=== PATIENT | female | born 1995 | race Hispanic/Latino ===

== ENCOUNTER 2022-02-24 23:21 | Emergency (ER) | payer MEDICAID ==
[~2022-02-24] VITALS: Ht 160 cm; Wt 79.4 kg
[2022-02-25 00:13] LABS: APPEARANCE,URINE CLEAR (CLEAR); BILIRUBIN,URINE NEGATIVE (NEGATIVE); COLOR,URINE YELLOW (YELLOW); GLUCOSE, URINE (UA) NEGATIVE (NEGATIVE); KETONES,URINE NEGATIVE (NEGATIVE); LEUKOCYTE ESTERASE ,URINE NEGATIVE (NEGATIVE); NITRATE,URINE NEGATIVE (NEGATIVE); OCCULT BLOOD,URINE MODERATE (NEGATIVE); PROTEIN,URINE NEGATIVE (NEGATIVE); UROBILINOGEN,URINE 0.2 mg/dL (0.2-1.0)
[2022-02-25 00:15] LABS: HCG,QUALITATIVE URINE NEGATIVE (NEGATIVE)
[2022-02-25 00:20] LABS: CREATININE 0.7 mg/dL (0.5-1.5); POTASSIUM 3.3 mmol/L (3.5-5.1)
[2022-02-25 00:21] LABS: BACTERIA,URINE Rare /HPF (None Seen); MUCUS,URINE Moderate LPF (None Seen); SQUAMOUS EPITHELIAL CELL,UR Moderate /HPF (0-2); WBC,URINE 0-1 /HPF (0-1)
[2022-02-25 00:22] LABS: INR 0.96 (0.85-1.15); PROTHROMBIN TIME 10.5 SEC (9.6-11.6)
[2022-02-25 00:23] LABS: PARTIAL THROMBOPLASTIN TIME 27.5 SEC (26.3-35.5)
[2022-02-25 00:25] LABS: ALBUMIN 3.4 g/dL (3.5-5.0); TOTAL PROTEIN, SERUM 6.8 g/dL (6.0-8.3)
[2022-02-25 00:36] LABS: BASOPHILS % (AUTO) 0.3 % (0.0-5.0); EOSINOPHILS % (AUTO) 1.3 % (0.0-8.0); HEMATOCRIT 37.7 % (36-48); LYMPHOCYTES % (AUTO) 13.8 % (21.0-51.0); MEAN CORPUSCULAR HEMOGLOBIN 29.9 pg (27.0-33.0); MEAN CORPUSCULAR HGB CONC 34.2 g/dL (32.0-36.0); MEAN CORPUSCULAR VOLUME 87.5 fL (79-99); MONOCYTES % (AUTO) 7.6 % (3.0-13.0); NEUTROPHILS % (AUTO) 76.7 % (40.0-77.0); PLATELET COUNT (AUTO) 298 K/uL (130-400); RED BLOOD CELL COUNT(AUTO) 4.31 MIL/uL (4.00-5.50); RED CELL DISTRIBUTION WIDTH 11.7 % (11.0-15.5); WHITE BLOOD COUNT (AUTO) 11.5 K/uL (4.8-10.8)
[2022-02-25] MEDS ORDERED: 0.9%NACL 1000ML 1,000 ML IV ONE (01:00)
[2022-02-25] MEDS ORDERED: CIPR-278 PO (01:43)
[2022-02-25 01:51] VITALS: BP 118/75
== END 2022-02-25 02:14 | disposition home or self-care (01) ==
LOC: EDH 23:21
DX: A09 Infectious gastroenteritis and colitis, unspecified (principal); K92.1 Melena; Z98.890 Other specified postprocedural states
CPT/HCPCS: 99283; 82270; 80053; 83690; 85025; 85610; 85730; 81001; 81025; 36415; J7030

== ENCOUNTER 2022-05-04 23:07 | Emergency (ER) | payer MEDICAID ==
[~2022-05-04] VITALS: Ht 160 cm; Wt 75.7 kg
[~2022-05-04 23:07] MED LIST: CIPR-278 PO
[2022-05-05] MEDS ORDERED: IPRATROPIUM/ALBUTEROL SULFATE 3 ML SOLUTION IH ONE
[2022-05-05] MEDS ORDERED: ACETAMINOPHEN 500 MG TABLET PO ONE
[2022-05-05] MEDS ORDERED: SOLU-MEDROL 125MG VIAL IVP ONE
[2022-05-05] MEDS ORDERED: PRED20TA3 PO (00:14)
[2022-05-05] MEDS ORDERED: OSEL75 PO (00:14)
[2022-05-05] MEDS ORDERED: IBUP-1493 PO (00:14)
[2022-05-05] MEDS ORDERED: ALBU8.5H8 IH (00:15)
[2022-05-05] MEDS ORDERED: IBUPROFEN 600 MG TABLET PO ONE (00:30)
[2022-05-05 00:32] VITALS: BP 108/64
== END 2022-05-05 00:34 | disposition home or self-care (01) ==
LOC: EDH 23:07
DX: J10.1 Influenza due to other identified influenza virus with other respiratory manifestations (principal); Z20.822 Contact with and (suspected) exposure to COVID-19; Z79.52 Long term (current) use of systemic steroids
CPT/HCPCS: 99283; 96374; 87635; 87804 ×2; C9803; J2930

== ENCOUNTER 2022-09-14 20:34 | Emergency (ER) | payer MEDICAID ==
[~2022-09-14] VITALS: Ht 157.5 cm; Wt 74.8 kg
[~2022-09-14 20:34] MED LIST changes: +ALBU8.5H8 IH; +IBUP-1493 PO; +OSEL75 PO; +PRED20TA3 PO
[2022-09-14 22:50] VITALS: BP 135/68
[2022-09-14] MEDS ORDERED: ONDANSETRON ODT 4MG TAB SL ONE (23:00)
[2022-09-14] MEDS ORDERED: KETOROLAC 30MG VIAL (30MG/ML) IM ONE (23:00)
== END 2022-09-14 22:59 | disposition home or self-care (01) ==
LOC: EDH 20:34
DX: B34.9 Viral infection, unspecified (principal); J35.01 Chronic tonsillitis; Z20.822 Contact with and (suspected) exposure to COVID-19; Z79.899 Other long term (current) drug therapy; Z98.890 Other specified postprocedural states
CPT/HCPCS: 99283; 87635; 87880; 87804 ×2; 96372; C9803; J1885

== ENCOUNTER 2022-09-17 14:44 | Emergency (ER) | payer MEDICAID ==
[~2022-09-17] VITALS: Ht 160 cm; Wt 81.6 kg
[2022-09-17 15:47] LABS: BASOPHILS % (AUTO) 0.6 % (0.0-5.0); EOSINOPHILS % (AUTO) 2.6 % (0.0-8.0); HEMATOCRIT 44.3 % (36-48); LYMPHOCYTES % (AUTO) 28.6 % (21.0-51.0); MEAN CORPUSCULAR HEMOGLOBIN 29.3 pg (27.0-33.0); MEAN CORPUSCULAR HGB CONC 33.6 g/dL (32.0-36.0); MONOCYTES % (AUTO) 5.2 % (3.0-13.0); NEUTROPHILS % (AUTO) 62.8 % (40.0-77.0); PLATELET COUNT (AUTO) 305 K/uL (130-400); RED BLOOD CELL COUNT(AUTO) 5.09 MIL/uL (4.00-5.50); RED CELL DISTRIBUTION WIDTH 11.9 % (11.0-15.5); WHITE BLOOD COUNT (AUTO) 8.5 K/uL (4.8-10.8)
[2022-09-17 15:58] LABS: CREATININE 0.5 mg/dL (0.5-1.5); POTASSIUM 3.7 mmol/L (3.5-5.1)
[2022-09-17 16:02] LABS: ALBUMIN 3.2 g/dL (3.5-5.0); TOTAL PROTEIN, SERUM 6.2 g/dL (6.0-8.3)
== END 2022-09-17 19:15 | disposition home or self-care (01) ==
LOC: EDH 14:44
DX: R42 Dizziness and giddiness (principal); Z20.822 Contact with and (suspected) exposure to COVID-19; Z79.1 Long term (current) use of non-steroidal anti-inflammatories (NSAID); Z79.52 Long term (current) use of systemic steroids
CPT/HCPCS: 99283; 87635; 80053; 85025; 87804 ×2; 36415; C9803

== ENCOUNTER 2022-10-03 21:15 | Emergency (ER) | payer MEDICAID ==
[~2022-10-03] VITALS: Ht 160 cm; Wt 74.4 kg
[2022-10-03 22:19] VITALS: BP 122/59
[2022-10-04] MEDS ORDERED: IBUP-2070 PO (00:36)
[2022-10-04] MEDS ORDERED: KETOROLAC 30MG VIAL (30MG/ML) IM ONE (01:00)
== END 2022-10-04 01:31 | disposition home or self-care (01) ==
LOC: EDH 21:15
DX: M77.8 Other enthesopathies, not elsewhere classified (principal)
CPT/HCPCS: 99283; 96372; J1885

== ENCOUNTER 2022-10-29 22:25 | Emergency (ER) | payer MEDICAID ==
[~2022-10-29] VITALS: Ht 160 cm; Wt 72.3 kg
[~2022-10-29 22:25] MED LIST changes: +IBUP-2070 PO
[2022-10-29] MEDS ORDERED: PANTOPRAZOLE 40 MG/VIAL IVP ONE (23:00)
[2022-10-29] MEDS ORDERED: KETOROLAC 30MG VIAL (30MG/ML) IVP ONE (23:00)
[2022-10-29] MEDS ORDERED: ACETAMINOPHEN 325 MG TAB PO ONE (23:00)
[2022-10-29] MEDS ORDERED: 0.9%NACL 1000ML 1,000 ML IV ONE (23:00)
[2022-10-29] MEDS ORDERED: DICYCLOMINE 20MG (10MG/ML) AMP IM ONE (23:00)
[2022-10-29] MEDS ORDERED: ONDANSETRON 4MG INJ IVP ONE (23:00)
[2022-10-29] MEDS ORDERED: IOHEXOL-350 75 ML VIAL IV ONE (23:07)
[2022-10-29 23:14] LABS: BASOPHILS % (AUTO) 0.6 % (0.0-5.0); EOSINOPHILS % (AUTO) 3.3 % (0.0-8.0); HEMATOCRIT 41.5 % (36-48); LYMPHOCYTES % (AUTO) 30.4 % (21.0-51.0); MEAN CORPUSCULAR HEMOGLOBIN 29.8 pg (27.0-33.0); MEAN CORPUSCULAR HGB CONC 32.5 g/dL (32.0-36.0); MEAN CORPUSCULAR VOLUME 91.6 fL (79-99); MONOCYTES % (AUTO) 5.9 % (3.0-13.0); NEUTROPHILS % (AUTO) 59.7 % (40.0-77.0); PLATELET COUNT (AUTO) 347 K/uL (130-400); RED BLOOD CELL COUNT(AUTO) 4.53 MIL/uL (4.00-5.50); RED CELL DISTRIBUTION WIDTH 12.3 % (11.0-15.5); WHITE BLOOD COUNT (AUTO) 8.6 K/uL (4.8-10.8)
[2022-10-29 23:16] LABS: APPEARANCE,URINE CLOUDY (CLEAR); BILIRUBIN,URINE NEGATIVE (NEGATIVE); COLOR,URINE YELLOW (YELLOW); GLUCOSE, URINE (UA) NEGATIVE (NEGATIVE); KETONES,URINE 10 mg/dL (NEGATIVE); LEUKOCYTE ESTERASE ,URINE 250 Leu/uL (NEGATIVE); NITRATE,URINE NEGATIVE (NEGATIVE); OCCULT BLOOD,URINE NEGATIVE (NEGATIVE); PH,URINE 6.5 (5.0-8.0); PROTEIN,URINE NEGATIVE (NEGATIVE); UROBILINOGEN,URINE 0.2 mg/dL (0.2-1.0)
[2022-10-29 23:18] LABS: HCG,QUALITATIVE URINE POSITIVE (NEGATIVE)
[2022-10-29 23:23] LABS: CREATININE 0.5 mg/dL (0.5-1.5); POTASSIUM 3.6 mmol/L (3.5-5.1)
[2022-10-29 23:28] LABS: ALBUMIN 3.7 g/dL (3.5-5.0); TOTAL PROTEIN, SERUM 7.3 g/dL (6.0-8.3)
[2022-10-29 23:40] LABS: BACTERIA,URINE RARE /HPF (None Seen); MUCUS,URINE RARE LPF (None Seen); SQUAMOUS EPITHELIAL CELL,UR MANY /HPF (0-2)
[2022-10-29] MEDS ORDERED: CEPH500C2 PO (23:44)
[2022-10-29] MEDS ORDERED: METO5 PO (23:44)
[2022-10-29] MEDS ORDERED: PNV#1CAP17 PO (23:44)
[2022-10-30 02:00] VITALS: BP 128/78
== END 2022-10-30 01:55 | disposition home or self-care (01) ==
LOC: EDH 22:25
DX: O23.41 Unspecified infection of urinary tract in pregnancy, first trimester (principal); N39.0 Urinary tract infection, site not specified; O26.891 Other specified pregnancy related conditions, first trimester; R10.30 Lower abdominal pain, unspecified; O21.9 Vomiting of pregnancy, unspecified; Z3A.01 Less than 8 weeks gestation of pregnancy; Z79.1 Long term (current) use of non-steroidal anti-inflammatories (NSAID); Z79.52 Long term (current) use of systemic steroids
CPT/HCPCS: 99285; 96374; 76801; 96361; 80053; 84702; 83690; 85025; 87088; 81001; 81025; 36415; J7030; J2405; Q9967

== ENCOUNTER 2022-12-17 23:15 | Emergency (ER) | payer MEDICAID ==
[~2022-12-17] VITALS: Ht 160 cm; Wt 72.1 kg
[~2022-12-17 23:15] MED LIST changes: +CEPH500C2 PO; +METO5 PO; +PNV#1CAP17 PO
[2022-12-18 00:17] LABS: APPEARANCE,URINE CLOUDY (CLEAR); BILIRUBIN,URINE NEGATIVE (NEGATIVE); COLOR,URINE YELLOW (YELLOW); GLUCOSE, URINE (UA) NEGATIVE (NEGATIVE); KETONES,URINE 5 mg/dL (NEGATIVE); LEUKOCYTE ESTERASE ,URINE 250 Leu/uL (NEGATIVE); NITRATE,URINE NEGATIVE (NEGATIVE); OCCULT BLOOD,URINE SMALL (NEGATIVE); PROTEIN,URINE NEGATIVE (NEGATIVE); UROBILINOGEN,URINE 0.2 mg/dL (0.2-1.0)
[2022-12-18 00:22] LABS: BACTERIA,URINE RARE /HPF (None Seen); MUCUS,URINE RARE LPF (None Seen); SQUAMOUS EPITHELIAL CELL,UR MOD /HPF (0-2)
[2022-12-18 00:30] LABS: BASOPHILS % (AUTO) 0.4 % (0.0-5.0); CREATININE 0.5 mg/dL (0.5-1.5); EOSINOPHILS % (AUTO) 1.8 % (0.0-8.0); HEMATOCRIT 36.4 % (36-48); MEAN CORPUSCULAR HEMOGLOBIN 30.1 pg (27.0-33.0); MEAN CORPUSCULAR HGB CONC 34.1 g/dL (32.0-36.0); MEAN CORPUSCULAR VOLUME 88.3 fL (79-99); NEUTROPHILS % (AUTO) 62.6 % (40.0-77.0); PLATELET COUNT (AUTO) 304 K/uL (130-400); POTASSIUM 3.9 mmol/L (3.5-5.1); RED BLOOD CELL COUNT(AUTO) 4.12 MIL/uL (4.00-5.50); RED CELL DISTRIBUTION WIDTH 11.9 % (11.0-15.5); WHITE BLOOD COUNT (AUTO) 9.2 K/uL (4.8-10.8)
[2022-12-18 00:55] LABS: ALBUMIN 2.7 g/dL (3.5-5.0); TOTAL PROTEIN, SERUM 7.1 g/dL (6.0-8.3)
[2022-12-18] MEDS ORDERED: CEFTRIAXONE 1G VIAL IVPB ONE (03:00)
[2022-12-18 04:11] VITALS: BP 95/60
[2022-12-18] MEDS ORDERED: 0.9%NACL 1000ML 1,000 ML IV SCH (04:30)
[2022-12-18] MEDS ORDERED: CEPH500B PO (04:40)
== END 2022-12-18 05:19 | disposition home or self-care (01) ==
LOC: EDH 23:15
DX: O23.41 Unspecified infection of urinary tract in pregnancy, first trimester (principal); N39.0 Urinary tract infection, site not specified; Z3A.11 11 weeks gestation of pregnancy; Z79.52 Long term (current) use of systemic steroids; Z20.822 Contact with and (suspected) exposure to COVID-19
CPT/HCPCS: 99285; 96374; 87635; 80053; 84702; 83690; 85025; 87088; 87804 ×2; 81001; 36415; 76801; 96361; C9803; J0696

== ENCOUNTER 2024-11-26 23:05 | Emergency (ER) | payer BC, MEDICAID ==
[~2024-11-26] VITALS: Ht 160 cm; Wt 80.7 kg
[~2024-11-26 23:05] MED LIST changes: +CEPH500B PO; +IOHEXOL 350 MG/ML 100ML INFUS..BTL IV ONE
[2024-11-26 23:40] LABS: BASOPHILS # (AUTO) 0.02 K/uL (0.00-0.20); BASOPHILS % (AUTO) 0.2 % (0.0-5.0); EOSINOPHILS # (AUTO) 0.03 K/uL (0.00-0.70); EOSINOPHILS % (AUTO) 0.3 % (0.0-8.0); HEMATOCRIT 39.7 % (36-48); IMMATURE GRANULOCYTE ABSOLUTE 0.03 K/uL (0-1); LYMPHOCYTES % (AUTO) 20.6 % (21.0-51.0); MEAN CORPUSCULAR HEMOGLOBIN 27.8 pg (27.0-33.0); MEAN CORPUSCULAR HGB CONC 32.5 g/dL (32.0-36.0); MEAN CORPUSCULAR VOLUME 85.6 fL (79-99); MONOCYTES # (AUTO) 0.4 K/uL (0.1-1.0); MONOCYTES % (AUTO) 4.5 % (3.0-13.0); NEUTROPHILS # (AUTO) 7.3 K/uL (1.8-7.7); NEUTROPHILS % (AUTO) 74.1 % (40.0-77.0); PLATELET COUNT (AUTO) 296 K/uL (130-400); RED BLOOD CELL COUNT(AUTO) 4.64 MIL/uL (4.00-5.50); RED CELL DISTRIBUTION WIDTH 14.2 % (11.0-15.5); WHITE BLOOD COUNT (AUTO) 9.9 K/uL (4.8-10.8)
[2024-11-26 23:50] LABS: CREATININE 0.6 mg/dL (0.5-1.0); POTASSIUM 3.5 mmol/L (3.5-5.1)
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
[2024-11-27 00:47] LABS: AMPHET/METH SCREEN,URINE NEGATIVE (NEGATIVE); BARBITURATE SCREEN, URINE NEGATIVE (NEGATIVE); BENZODIAZEPINES SCREEN,URINE NEGATIVE (NEGATIVE); CANNABINOID SCREEN,URINE NEGATIVE (NEGATIVE); COCAINE SCREEN,URINE NEGATIVE (NEGATIVE); OPIATE SCREEN,URINE NEGATIVE (NEGATIVE); PHENCYCLIDINE SCREEN,URINE NEGATIVE (NEGATIVE)
[2024-11-27 00:52] LABS: ADD UA MICROSCOPIC YES; APPEARANCE,URINE CLOUDY (CLEAR); BILIRUBIN,URINE NEGATIVE (NEGATIVE); COLOR,URINE YELLOW (YELLOW); GLUCOSE, URINE (UA) NEGATIVE (NEGATIVE); KETONES,URINE 100 mg/dL (NEGATIVE); LEUKOCYTE ESTERASE ,URINE NEGATIVE Leu/uL (NEGATIVE); NITRATE,URINE NEGATIVE (NEGATIVE); OCCULT BLOOD,URINE LARGE (NEGATIVE); PROTEIN,URINE NEGATIVE (NEGATIVE); UROBILINOGEN,URINE 0.2 mg/dL (0.2-1.0)
[2024-11-27 00:53] LABS: BACTERIA,URINE FEW /HPF (None Seen); MUCUS,URINE RARE LPF (None Seen); SQUAMOUS EPITHELIAL CELL,UR RARE /HPF (0-2)
[2024-11-27] MEDS ORDERED: IOHEXOL 350 MG/ML 100ML INFUS..BTL IV ONE (01:52)
[2024-11-27] MEDS ORDERED: AMOX500T2 PO (04:09)
[2024-11-27 05:00] VITALS: BP 124/78; PULSE 88; RESP 16; TEMP 98.1; O2SAT 99
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
--- NOTE | 2024-11-27 08:45 | HMCIMG ---
CT ABDOMEN/PELVIS W/CONTRAST HISTORY: No additional history given. COMPARISON: None TECHNIQUE: Multiple sequential axial images of the abdomen and pelvis were obtained from the dome of the diaphragm through symphysis pubis. Patient was not given contrast through intravenous route. Oral contrast was not given. FINDINGS: No pleural effusion is seen bilaterally. There is no evidence of parenchymal disease or pulmonary nodule of the visualized lower lungs. Degenerative changes of the thoracolumbar spine are present. The heart is not enlarged. Fatty infiltration of the liver is noted. Liver measures 15 cm. The liver, spleen, adrenal glands and pancreas are unremarkable. There is no evidence of hydronephrosis bilaterally. No evidence of renal stone is seen. Fecal material is seen in the colon. There are normal size retroperitoneal and mesenteric lymph nodes. No ascites is seen. No CT evidence of acute appendicitis is seen. There is right ovarian cyst measuring 3 cm. There may be a hypodense lesion in the cervix measuring 2.1 cm with neoplasm not excluded. Pelvic sidewalls are symmetric bilaterally. Bladder is poorly distended. Sclerotic changes of the sacroiliac joints are noted suggestive of sacroiliitis. IMPRESSION: 1. There is right ovarian cyst measuring 3 cm. There may be a hypodense lesion in the cervix measuring 2.1 cm with neoplasm not excluded. CT was performed with one or more following dose reduction techniques: automated exposure control, adjustment of the mA and kv according to patient's size, or use of a iterative reconstruction technique.
== END 2024-11-27 05:24 | disposition home or self-care (01) ==
LOC: EDH 23:05
DX: S09.8XXA Other specified injuries of head, initial encounter (principal); S39.81XA Other specified injuries of abdomen, initial encounter; J01.90 Acute sinusitis, unspecified; N94.9 Unspecified condition associated with female genital organs and menstrual cycle; R10.2 Pelvic and perineal pain; Z79.899 Other long term (current) drug therapy; Z98.890 Other specified postprocedural states; Y04.0XXA Assault by unarmed brawl or fight, initial encounter; Y93.89 Activity, other specified; Y92.89 Other specified places as the place of occurrence of the external cause; Y99.8 Other external cause status
CPT/HCPCS: 99285; 70450; 80048; 80305; 84702; 85025; 36415; 74177; 81001; Q9967